=== PATIENT | male | born 1990 | race Caucasian/White ===

== ENCOUNTER 2018-08-24 19:36 | Emergency (ER) | payer OTHER ==
[~2018-08-24] VITALS: Ht 170.2 cm; Wt 100.7 kg
[2018-08-24 19:46] VITALS: BP 140/93; PULSE 80; RESP 18; Ht 170.2 cm; Wt 100.7 kg
[2018-08-24] MEDS ORDERED: CEPH-443 PO (20:25)
[2018-08-24] MEDS ORDERED: IBUP-1542 PO (20:25)
[2018-08-24] MEDS ORDERED: SULF1TAB31 PO (20:25)
--- NOTE | 2018-08-24 20:26 | ERD ---
ER Documentation Chief Complaint Chief Complaint swelling/redness right upper arm x 2 weeks, wound/drainage left foot HPI 28-year-old male presents to ED complaining of a lesion on his right upper arm and a lesion on his left dorsal foot. He states that the lesion on his right upper arm began about 2 weeks ago lesion on his foot began 1 week ago. He is unsure the cause of the lesions but thinks he might of been bitten by spider. He states that he has not taken any medication for his symptoms. He reports 9 out of 10 pain that does not radiate anywhere. He denies a history of similar events. He denies any fevers or chills. Denies past medical history ROS All systems reviewed and are negative except as per history of present illness. Medications Home Meds Active Scripts Ibuprofen* (Motrin*) 600 Mg Tab, 600 MG PO Q6H PRN for PAIN AND OR ELEVATED TEMP, #30 TAB Prov:STANLEY SORIA PA-C 08/24/18 Cephalexin* (Keflex*) 500 Mg Capsule, 500 MG PO BID for 7 Days, CAP Prov:STANLEY SORIA PA-C 08/24/18 Sulfamethoxazole/Trimethoprim* (Bactrim Ds* Tablet) 1 Each Tablet, 1 TAB PO BID, #14 TAB Prov:STANLEY SORIA PA-C 08/24/18 Allergies Allergies: Coded Allergies: No Known Drug Allergies (Verified Allergy, Unknown, 08/24/18) PMhx/Soc Medical and Surgical Hx: pt denies Medical Hx, pt denies Surgical Hx Hx Alcohol Use: No Hx Substance Use: No Hx Tobacco Use: No Smoking Status: Never smoker FmHx Family History: No diabetes Physical Exam Vitals Vital Signs Date Temp Pulse Resp B/P (MAP) Pulse Ox O2 O2 Flow FiO2 Time Delivery Rate 08/24/18 99.0 80 18 140/93 100 19:46 (109) Physical Exam Const: No acute distress Head: Atraumatic Eyes: Normal Conjunctiva ENT: Normal External Ears, Nose and Mouth. Neck: Full range of motion. No meningismus. Resp: Clear to auscultation bilaterally Cardio: Regular rate and rhythm, no murmurs Abd: Soft, non tender, non distended. Normal bowel sounds Skin: Right UE: 1 inch abscess on arm, hard and swollen, not fluctuant, Left foot: yellow wound on dorsal foot. dry yellow d/c present Back: No midline or flank tenderness Ext: No cyanosis, or edema Neur: Awake and alert Psych: Normal Mood and Affect Results 24 hrs Current Medications Medications Dose Sig/Farica Start Time Status Last (Trade) Ordered Route PRN Stop Time Admin Dose Reason Admin Ibuprofen 800 mg ONCE ONCE 08/24/18 DC 08/24/18 (Motrin) PO 20:30 20:31 08/24/18 20:31 Procedures/MDM ED COURSE: The patient was stable throughout ED course. I kept the patient informed of laboratory and diagnostic imaging results throughout the ED course. MEDICATIONS GIVEN: [None.] MEDICAL DECISION MAKING: Patient is a 28-year-old male complaining of 2 abscesses on his body x1 to 2 weeks. History & Physical and other data not c/w emergent process including deep tracking infection, sepsis, lymphangitis. Patient had one abscess on his right upper extremity and one abscess on his left dorsal foot. The abscess on the right upper extremity was extremely hard and tender. It was not very fluctuant and I do not think incision and drainage was appropriate at this time. I think treatment for outpatient antibiotics was most beneficial for the patient at this time. The abscess on the left dorsal foot had yellow dried discharge present. However it was was flat and already opened up by the patient. Again I believe outpatient antibiotics was appropriate for the patient at this time. Patient was told to follow-up for recheck in 2 days in this ED. Patient was also told to return to ED if symptoms persist or worsen until then. Vital signs were reviewed. Patient is afebrile. Patient was not hypoxic. Patient was hemodynamically stable. Patient was told to follow up with primary care for further care and management. PRESCRIPTION: Keflex, Bactrim, motrin DISCHARGE: At this time, patient is stable for discharge and outpatient management. I have instructed the patient to follow-up with his/her primary care physician in 1-2 days. I have discussed with the patient the possibility of needing to see a specialist for further workup and imaging studies if symptoms persist. I have instructed the patient to promptly return to the ER for any new or worsening symptoms including increased pain, fever, nausea, vomiting, weakness or LOC. The patient expressed understanding of and agreement with this plan. All questions were answered. Home care instructions were provided. Disclaimer: Inadvertent spelling and grammatical errors are likely due to EHR/dictation software use and do not reflect on the overall quality of patient care. Also, please note that the electronic time recorded on this note does not necessarily reflect the actual time of the patient encounter. Departure Diagnosis: Primary Impression: Abscess Condition: Fair Patient Instructions: Abscess, Antiobiotic Treatment Only Referrals: [facility] YOU HAVE RECEIVED A MEDICAL SCREENING EXAM AND THE RESULTS INDICATE THAT YOU DO NOT HAVE A CONDITION THAT REQUIRES URGENT TREATMENT IN THE EMERGENCY DEPARTMENT. FURTHER EVALUATION AND TREATMENT OF YOUR CONDITION CAN WAIT UNTIL YOU ARE SEEN IN YOUR DOCTORS OFFICE WITHIN THE NEXT 1-2 DAYS. IT IS YOUR RESPONSIBILITY TO MAKE AN APPOINTMENT FOR FOLOW-UP CARE. IF YOU HAVE A PRIMARY DOCTOR --you should call your primary doctor and schedule an appointment IF YOU DO NOT HAVE A PRIMARY DOCTOR YOU CAN CALL OUR PHYSICIAN REFERRAL HOTLINE AT IF YOU CAN NOT AFFORD TO SEE A PHYSICIAN YOU CAN CHOSE FROM THE FOLLOWING [facility] [address] [facility] [address] [facility]. [facility] [address] [facility] [address] [facility] [address] [facility]. [facility]. [address] [facility]. [facility] YOU HAVE RECEIVED A MEDICAL SCREENING EXAM AND THE RESULTS INDICATE THAT YOU DO NOT HAVE A CONDITION THAT REQUIRES URGENT TREATMENT IN THE EMERGENCY DEPARTMENT. FURTHER EVALUATION AND TREATMENT OF YOUR CONDITION CAN WAIT UNTIL YOU ARE SEEN IN YOUR DOCTORS OFFICE WITHIN THE NEXT 1-2 DAYS. IT IS YOUR RESPONSIBILITY TO MAKE AN APPOINTMENT FOR FOLOW-UP CARE. IF YOU HAVE A PRIMARY DOCTOR --you should call your primary doctor and schedule and appointment IF YOU DO NOT HAVE A PRIMARY DOCTOR YOU CAN CALL OUR PHYSICIAN REFERRAL HOTLINE AT . IF YOU CAN NOT AFFORD TO SEE A PHYSICIAN YOU CAN CHOSE FROM THE FOLLOWING [facility]: [facility] [address] [place] [address] [facility] [address] [place] [address] [facility] + [facility] [address] [place] [address] Additional Instructions: Return back to this ED in 2 days for a recheck Call your primary care doctor TOMORROW for an appointment during the next 1-2 days.See the doctor sooner or return here if your condition worsens before your appointment time. STANLEY SORIA PA-C Aug 24, 2018 20:26
[2018-08-24] MEDS ORDERED: IBUPROFEN 800 MG TAB PO ONE (20:30)
== END 2018-08-24 20:35 | disposition home or self-care (01) ==
LOC: FTE 19:36
DX: L02.413 Cutaneous abscess of right upper limb (principal)
CPT/HCPCS: Z7502; Z7610; 99283

== ENCOUNTER 2018-09-25 17:12 | Emergency (ER) | payer OTHER ==
[~2018-09-25] VITALS: Ht 172.7 cm; Wt 98.2 kg
[~2018-09-25 17:12] MED LIST: CEPH-443 PO; CYCL10TA7 PO; IBUP-1542 PO; LACT1CAP57 PO; SULF1TAB31 PO
[2018-09-25 17:20] VITALS: Ht 172.7 cm; Wt 98.2 kg
[2018-09-25 21:35] VITALS: BP 108/58; PULSE 94; RESP 17
== END 2018-09-25 21:44 | disposition home or self-care (01) ==
LOC: FTE 17:12
DX: S39.012A Strain of muscle, fascia and tendon of lower back, initial encounter (principal); F17.210 Nicotine dependence, cigarettes, uncomplicated; X50.0XXA Overexertion from strenuous movement or load, initial encounter; Y92.89 Other specified places as the place of occurrence of the external cause
CPT/HCPCS: 10060; 96372; J1885; Z7502; Z7610